=== PATIENT | female | born 1995 | race Caucasian/White ===

== ENCOUNTER 2020-03-04 19:37 | Emergency (ER) | payer OTHER ==
[2020-03-04] MEDS ORDERED: Ondansetron 4 MG/2 ML SDV IVPUSH STA (19:44)
[2020-03-04] MEDS ORDERED: Morphine 4 MG/ML VIAL IVPUSH ONE (19:44)
[2020-03-04] MEDS ORDERED: Sodium Chloride 0.9% 1,000 ML IV ONE (19:44)
--- NOTE | 2020-03-04 19:48 | EDM.PDOC ---
ED HPI GENERAL MEDICAL PROBLEM - General Chief Complaint: General Stated Complaint: abdominal pain Time Seen by Provider: 03/04/20 19:42 Source of Information: Reports: Patient History Limitations: Reports: No Limitations - History of Present Illness INITIAL COMMENTS - FREE TEXT/NARRATIVE: This patient is a 24 year old female that presents to the ER. Patient reports that at about 3pm today she started having lower umbilical belly pain. She reports as time has progressed, the abominal pain has become worse and moved to the RLQ. She reports the pain is also in the lower center of her back, right worse than right. She reports having nausea with the sharp pain. She reports that she also has congestion for a couple of days. Onset: Today Onset Date: 03/04/20 Onset Time: 15:00 Duration: Constant, Getting Worse Location: Reports: Abdomen Quality: Reports: Sharp Severity: Severe Improves with: Reports: None Worsens with: Reports: None Associated Symptoms: Reports: Nausea/Vomiting. Denies: Confusion, Chest Pain, Cough, cough w sputum, Diaphoresis, Fever/Chills, Headaches, Loss of Appetite, Malaise, Rash, Seizure, Shortness of Breath, Syncope, Weakness Bilateral Middle Abdomen Pain Score (Numeric/FACES): 8 - Related Data Allergies Allergy/AdvReac Type Severity Reaction Status Date / Time No Known Allergies Allergy Verified 03/04/20 20:06 Home Meds: Home Meds norgestimate-ethinyl estradioL [Tri-Linyah Tablet] 1 tab PO DAILY 03/04/20 [History] ED ROS GENERAL - Review of Systems Review Of Systems: See Below Constitutional: Reports: No Symptoms. Denies: Fever HEENT: Reports: Sinus Problem (congested) Respiratory: Reports: No Symptoms. Denies: Shortness of Breath, Cough, Sputum Cardiovascular: Reports: No Symptoms. Denies: Chest Pain, Edema, Lightheadedness, Palpitations, Syncope Endocrine: Reports: No Symptoms GI/Abdominal: Reports: Abdominal Pain, Nausea. Denies: Diarrhea, Vomiting : Reports: No Symptoms, Flank Pain (right). Denies: Discharge, Dysuria, Frequency, Hematuria, Incontinence, Irregular Menses, Pain, Urgency, Urinary Retention Musculoskeletal: Reports: Back Pain Skin: Reports: No Symptoms Neurological: Reports: No Symptoms Psychiatric: Reports: No Symptoms Hematologic/Lymphatic: Reports: No Symptoms Immunologic: Reports: No Symptoms ED EXAM, GENERAL - Physical Exam Exam: See Below Exam Limited By: No Limitations General Appearance: Alert, WD/WN, No Apparent Distress, Anxious Eye Exam: Bilateral Eye: Normal Inspection, PERRL Ears: Normal External Exam, Normal Canal, Hearing Grossly Normal, Normal TMs Ear Exam: Bilateral Ear: Auricle Normal, Canal Normal, TM normal Nose: Normal Inspection, Normal Mucosa, No Blood Throat/Mouth: Normal Inspection, Normal Lips, Normal Teeth, Normal Gums, Normal Oropharynx, Normal Voice, No Airway Compromise Head: Atraumatic, Normocephalic Neck: Normal Inspection, Supple, Non-Tender, Full Range of Motion Respiratory/Chest: No Respiratory Distress, Lungs Clear, Normal Breath Sounds, No Accessory Muscle Use Cardiovascular: Normal Peripheral Pulses, Regular Rate, Rhythm, No Edema, No Gallop, No JVD, No Murmur, No Rub Peripheral Pulses: 2+: Radial (L), Radial (R), Posterior Tibial (L), Posterior Tibial (R) GI/Abdominal: Normal Bowel Sounds, Soft, No Organomegaly, No Distention, No Mass, Pelvis Stable, Rebound, Tender (umbilicus, Moderate. RLQ, Severe. LLQ mild. ). No: Guarding, Rigid (Female) Exam: Deferred Rectal (Female) Exam: Deferred Back Exam: Normal Inspection, Full Range of Motion, CVA Tenderness (R). No: CVA Tenderness (L), Decreased Range of Motion, Muscle Spasm, Paraspinal Tenderness, Vertebral Tenderness Extremities: Normal Inspection, Normal Range of Motion, Non-Tender, No Pedal Edema, Normal Capillary Refill Neurological: Alert, Oriented, Normal Cognition, Normal Gait, No Motor/Sensory Deficits Psychiatric: Anxious, Tearful Skin Exam: Warm, Dry, Intact, Normal Color, No Rash Lymphatic: No Adenopathy Course - Vital Signs Last Recorded V/S: Last Vital Signs Temp 98.7 F 03/04/20 22:46 Pulse 82 03/04/20 22:46 Resp 18 03/04/20 22:46 BP 147/76 H 03/04/20 22:46 Pulse Ox 99 03/04/20 22:46 - Orders/Labs/Meds Orders: Active Orders 24 hr Category Date Time Status Abdomen Pelvis w Cont [CT] Stat Exams 03/04/20 19:44 Taken Labs: Laboratory Tests 03/04/20 03/04/20 03/04/20 Range/Units 20:00 20:00 20:00 WBC 13.0 H (5.0-10.0) 10^3/uL RBC 4.38 (4.00-5.50) 10^6/uL Hgb 13.2 (12.0-16.0) g/dL Hct 39.2 (37.0-47.0) % MCV 89.5 (82.0-94.0) fL MCH 30.1 (27.0-32.0) pg MCHC 33.7 (33.0-38.0) g/dL RDW Coeff of Daina 11.6 (11.0-15.0) % Plt Count 296 (150-400) 10^3/uL Neut % (Auto) 75.2 (35-85) % Lymph % (Auto) 19.8 (10-55) % [place] % (Auto) 3.9 (0-16) % Eos % (Auto) 0.9 (0-5) % Baso % (Auto) 0.2 (0-3) % Neut # (Auto) 9.75 H (1.80-7.00) 10^3/uL Lymph # (Auto) 2.57 (1.00-4.80) 10^3/uL [place] # (Auto) 0.50 (0.00-0.80) 10^3/uL Eos # (Auto) 0.12 (0.00-0.45) 10^3/uL Baso # (Auto) 0.02 10^3/uL Sodium 139 (136-145) mEq/L Potassium 3.4 L (3.5-5.0) mEq/L Chloride 103 (98-106) mEq/L Carbon Dioxide 26 (21-32) mmol/L BUN 18 (7-18) mg/dL Creatinine 0.8 (0.6-1.0) mg/dL Est Cr Clr Drug Dosing 102.39 mL/min Estimated GFR (MDRD) > 60 (>=60) mL/min Glucose 99 (75-99) mg/dL Calcium 9.1 (8.4-10.1) mg/dL Total Bilirubin 0.6 (0.0-1.0) mg/dL AST 17 (15-37) U/L ALT 22 (12-78) U/L Alkaline Phosphatase 52 (46-116) U/L Total Protein 7.6 (6.4-8.2) g/dL Albumin 3.7 (3.4-5.0) g/dL Amylase 58 (25-115) U/L Lipase 81 (73-393) U/L HCG, Qual Negative Urine Color (YELLOW) Urine Appearance (CLEAR) Urine pH (4.5-8.0) Ur Specific [place] (1.003-1.020) Urine Protein (NEGATIVE) mg/dL Urine Glucose (UA) (NEGATIVE) mg/dL Urine Ketones (NEGATIVE) mg/dL Urine Occult Blood (NEGATIVE) Urine Nitrite (NEGATIVE) Urine Bilirubin (NEGATIVE) Urine Urobilinogen (0.2-1.0) EU/dL Ur Leukocyte Esterase (NEGATIVE) U Hyaline Cast (Auto) (NOT SEEN) /LPF Urine RBC (0-5) /HPF Urine WBC (0-5) /HPF Ur Squamous Epith Cells (NOT SEEN) /HPF Urine Bacteria (NOT SEEN) /HPF Urine Mucus (NOT SEEN) /HPF SARS CoV-2 RNA Rapid WILLY (NEGATIVE) 03/04/20 03/04/20 Range/Units 20:05 21:25 WBC (5.0-10.0) 10^3/uL RBC (4.00-5.50) 10^6/uL Hgb (12.0-16.0) g/dL Hct (37.0-47.0) % MCV (82.0-94.0) fL MCH (27.0-32.0) pg MCHC (33.0-38.0) g/dL RDW Coeff of Daina (11.0-15.0) % Plt Count (150-400) 10^3/uL Neut % (Auto) (35-85) % Lymph % (Auto) (10-55) % [place] % (Auto) (0-16) % Eos % (Auto) (0-5) % Baso % (Auto) (0-3) % Neut # (Auto) (1.80-7.00) 10^3/uL Lymph # (Auto) (1.00-4.80) 10^3/uL [place] # (Auto) (0.00-0.80) 10^3/uL Eos # (Auto) (0.00-0.45) 10^3/uL Baso # (Auto) 10^3/uL Sodium (136-145) mEq/L Potassium (3.5-5.0) mEq/L Chloride (98-106) mEq/L Carbon Dioxide (21-32) mmol/L BUN (7-18) mg/dL Creatinine (0.6-1.0) mg/dL Est Cr Clr Drug Dosing mL/min Estimated GFR (MDRD) (>=60) mL/min Glucose (75-99) mg/dL Calcium (8.4-10.1) mg/dL Total Bilirubin (0.0-1.0) mg/dL AST (15-37) U/L ALT (12-78) U/L Alkaline Phosphatase (46-116) U/L Total Protein (6.4-8.2) g/dL Albumin (3.4-5.0) g/dL Amylase (25-115) U/L Lipase (73-393) U/L HCG, Qual Urine Color Yellow (YELLOW) Urine Appearance Slightly cloudy (CLEAR) Urine pH 5.0 (4.5-8.0) Ur Specific [place] 1.010 (1.003-1.020) Urine Protein Negative (NEGATIVE) mg/dL Urine Glucose (UA) Negative (NEGATIVE) mg/dL Urine Ketones Negative (NEGATIVE) mg/dL Urine Occult Blood Negative (NEGATIVE) Urine Nitrite Negative (NEGATIVE) Urine Bilirubin Negative (NEGATIVE) Urine Urobilinogen 0.2 (0.2-1.0) EU/dL Ur Leukocyte Esterase Negative (NEGATIVE) U Hyaline Cast (Auto) Rare (NOT SEEN) /LPF Urine RBC 0-5 (0-5) /HPF Urine WBC 0-5 (0-5) /HPF Ur Squamous Epith Cells Many H (NOT SEEN) /HPF Urine Bacteria Few H (NOT SEEN) /HPF Urine Mucus Rare (NOT SEEN) /HPF SARS CoV-2 RNA Rapid WILLY Negative (NEGATIVE) Meds: Medications Discontinued Medications Generic Name Dose Route Start Last Admin Trade Name Freq PRN Reason Stop Dose Admin Hydromorphone HCl 1 mg 03/04/20 20:11 03/04/20 20:20 Dilaudid IVPUSH 03/04/20 20:12 1 mg ONETIME ONE Administration Hydromorphone HCl 1 mg 03/04/20 21:30 03/04/20 21:34 Dilaudid IVPUSH 03/04/20 21:31 1 mg ONETIME ONE Administration Hydromorphone HCl 1 mg 03/04/20 21:54 03/04/20 21:59 Dilaudid IVPUSH 03/04/20 21:55 1 mg ONETIME ONE Administration Sodium Chloride 1,000 mls @ 1,000 mls/hr 03/04/20 19:44 03/04/20 19:53 Normal Saline IV 03/04/20 20:43 1,000 mls/hr .BOLUS ONE Administration Iopamidol 100 ml 03/04/20 20:30 03/04/20 20:31 Isovue-370 (76%) IVPUSH 03/04/20 20:31 100 ml ONETIME ONE Administration Morphine Sulfate 4 mg 03/04/20 19:44 03/04/20 19:50 Morphine IVPUSH 03/04/20 19:45 4 mg ONETIME ONE Administration Ondansetron HCl 4 mg 03/04/20 19:44 03/04/20 19:49 Zofran IVPUSH 03/04/20 19:45 4 mg NOW STA Administration - Radiology Interpretation Free Text/Narrative:: CT Abd/Pelvis: Acute appendicitis CT Results Date: 03/04/20 CT Results Time: 22:24 - Re-Assessments/Exams Free Text/Narrative Re-Assessment/Exam: 03/04/20 20:12 After Morphine, she did not have pain relief. I have now ordered Dilaudid. 03/04/20 20:30 Patient reports the Dilaudid did help her pain. She is now at a 5/[address] Labs reviewed. 03/04/20 21:30 Patient reports pain has returned, ordered more Dilaudid. 03/04/20 21:[address] results, I called to check on status, but still in que to be read. 03/04/20 21:55 Patient reports her pain is now increasing again, 7/10. Ordered more Dilaudid. Still awaiting ct results. 03/04/20 22:30 Spoke to patient about her results. She has chosen [facility]. I have called and spoke to Dr. Jolley, surgeon about this patient. He has accepted the transfer. Will transfer via ALS due to amount of pain medication she has obtained in the ER, I would anticipate her needing more in route. Patient reports pain is currently improved at a 4/10. Departure - Departure Time of Disposition: 22:43 Disposition: DC/Tfer to Acute Hospital 02 Condition: Fair Clinical Impression: Acute appendicitis Qualifiers: Acute appendicitis type: unspecified acute appendicitis type Qualified Code(s): K35.80 - Unspecified acute appendicitis - Discharge Information *PRESCRIPTION DRUG MONITORING PROGRAM REVIEWED*: Not Applicable *COPY OF PRESCRIPTION DRUG MONITORING REPORT IN PATIENT MICKEY: Not Applicable Referrals: Mae Ibarra PA [Primary Care Provider] - Forms: ED Department Discharge Sepsis Event Note (ED) - Focused Exam Vital Signs: Vital Signs Temp Pulse Resp BP Pulse Ox 03/04/20 22:46 98.7 F 82 18 147/76 H 99 03/04/20 20:00 98.6 F 93 20 132/76 100 - My Orders Last 24 Hours: My Active Orders 03/04/20 19:44 Abdomen Pelvis w Cont [CT] Stat - Assessment/Plan Last 24 Hours: My Active Orders 03/04/20 19:44 Abdomen Pelvis w Cont [CT] Stat Plan: PLEASE SEE RN NOTE FOR PFSH The risk vs benefits explained to the patient of transfer and she has agreed to the transfer. The risk of transfer is mvc, , worsening of pain, appendix rupture. The risk of staying in [place] is , worsening of pain, cont inued pain, appendix rupture, infection. The benefits of transfer are higher level of care, general surgeon. The benefits of staying in [place] is none.
[2020-03-04] MEDS ORDERED: HYDROmorphone 1 MG/ML Syringe IVPUSH ONE ×3 (20:11→21:54)
[2020-03-04 20:22] LABS: CHLORIDE,CL 103 mEq/L (98-106); SODIUM,NA 139 mEq/L (136-145)
[2020-03-04] MEDS ORDERED: Iopamidol 755 Mg/ML 100 ML Bottle IVPUSH ONE (20:30)
== END 2020-03-04 23:56 ==
LOC: SUPCPDRO 19:37 → CC.ED 19:37
DX: K35.80 Unspecified acute appendicitis (principal); M54.5 Low back pain; R09.81 Nasal congestion; Z20.828 Contact with and (suspected) exposure to other viral communicable diseases
CPT/HCPCS: 36415; 74177; 80053; 81001; 82150; 83690; 84703; 85025; 96361; 96374; 96375; 96376; 99285-25; J1170; J2270; J2405; J7030; Q9967; U0002